=== PATIENT | male | born 1960 ===

== ENCOUNTER 2020-06-13 09:51 | Outpatient (CLI) | payer OTHER, SELFPAY ==
[2020-06-13 10:48] LABS: Basophils Absolute Auto 0.1 K/mm3 (0.0-0.1); Basophils Percent Auto 1.3 % (0.2-1.2); Eosinophils Absolute Auto 0.3 K/mm3 (0-0.3); Eosinophils Percent Auto 3.6 % (0-4.4); Hematocrit 45.2 % (42.0-52.0); Hemoglobin 15.4 g/dL (14.0-18.0); Immature Granulocyte Absolute 0.05 K/mm3 (0.00-0.031); Immature Granulocyte Percent A 0.7 % (0-0.5); Lymphocytes Absolute Auto 1.62 K/mm3 (0.9-3.2); Lymphocytes Percent Auto 22.6 % (18.3-44.2); Mean Corpuscular HGB Conc 34.1 g/dl (32-36); Mean Corpuscular Hemoglobin 30.1 pg (26-34); Mean Corpuscular Volume 88.3 fl (80-100); Monocytes Absolute Auto 0.8 K/mm3 (0.1-0.6); Monocytes Percent Auto 10.6 % (2.6-8.5); Neutrophils Absolute Auto 4.4 K/mm3 (1.3-6.7); Neutrophils Percent Auto 61.2 % (45.5-73.1); Platelet Count Result 190 k/mm3 (150-375); Red Blood Count 5.12 M/mm3 (4.6-6.20); Red Cell Distribution Width 12.3 % (11.5-14.5); White Blood Count 7.2 K/mm3 (4.5-10.0)
[2020-06-13 11:02] LABS: Alanine Aminotransferase 35 U/L (4-50); Alkaline Phosphatase 86 U/L (38-126); Anion Gap 5 mmol/L (8-16); Aspartate Amino Transferase 30 U/L (17-59); Bilirubin,Total 0.6 mg/dL (0.2-1.3); Blood Urea Nitrogen 17 mg/dL (9-20); Calcium 9.2 mg/dL (8.4-10.2); Carbon Dioxide 32 mmol/L (22-30); Chloride 106 mmol/L (98-107); Cholesterol 201 mg/dL (0-200); Estimated Glomerular Filt Rate > 60; Glucose 97 mg/dL (75-110); HDL Direct 34 mg/dL; Magnesium 2.3 mg/dL (1.6-2.3); Potassium 4.5 mmol/L (3.4-5.0); Sodium 143 mmol/L (137-145); Triglycerides 114 mg/dL (<150)
[2020-06-13 11:13] LABS: LDL Cholesterol Direct 149 mg/dL
[2020-06-13 11:31] LABS: Thyroid Stimulating Hormone 0.806 uIU/mL (0.465-4.680)
[2020-06-13 11:44] LABS: Free T4 Free Thyroxine 1.11 ng/mL (0.78-2.19)
== END 2020-06-13 09:52 | disposition home or self-care (01) ==
PROVIDERS: PCP Family Medicine
DX: E78.5 Hyperlipidemia, unspecified (principal); I48.19 Other persistent atrial fibrillation; I10 Essential (primary) hypertension; I49.3 Ventricular premature depolarization
CPT/HCPCS: 36415; 80053; 80061; 83735; 84439; 84443; 85025

== ENCOUNTER 2020-09-06 10:47 | Emergency (ER) | payer OTHER, SELFPAY ==
[2020-09-06] VITALS (11 sets, daily range): BP systolic 103–139; BP diastolic 61–108; PULSE 66–105; RESP 16–20; TEMP 36.8; O2SAT 97–100
--- NOTE | ~2020-09-06 | XR_ITS ---
EXAMINATION: XR chest 2V EXAM DATE: 09/06/2020 11:56 INDICATION: Shortness of breath and dizziness. TECHNIQUE: Frontal and lateral projections of the chest obtained and reviewed. Comparison is made to prior examination from 12/07/2016. FINDINGS: The lungs are clear. There are no pleural effusions. The cardiomediastinal silhouette is within normal limits. There is no pneumothorax suspected. The bones and soft tissues are unremarkab le. IMPRESSION: No acute cardiopulmonary findings. Reviewed, dictated and finalized at location A. D CROP AND LIVESTOCK FARMER
--- NOTE | 2020-09-06 10:58 | ECG_ITS ---
Measurements Intervals [place] Rate: 94 P: CT: 0 QRS: 9 QRSD: 96 T: 30 QT: 330 QTc: 413 Interpretive Statements ATRIAL FIBRILLATION NONSPECIFIC T-WAVE ABNORMALITY- INFERIOR LEADS BASELINE ARTIFACT- I, II, III, AVR, AVL, AVF ABNORMAL ECG Electronically Signed On 09-06-2020 11:43:00 LEGAL ASSISTANT by Santiago Mcwilliams D.O.
[2020-09-06 11:30] LABS: Basophils Absolute Auto 0.1 K/mm3 (0.0-0.1); Basophils Percent Auto 0.7 % (0.2-1.2); Eosinophils Absolute Auto 0.2 K/mm3 (0-0.3); Eosinophils Percent Auto 3.4 % (0-4.4); Hematocrit 46.6 % (42.0-52.0); Hemoglobin 15.7 g/dL (14.0-18.0); Immature Granulocyte Absolute 0.05 K/mm3 (0.00-0.031); Immature Granulocyte Percent A 0.7 % (0-0.5); Lymphocytes Absolute Auto 1.53 K/mm3 (0.9-3.2); Lymphocytes Percent Auto 21.5 % (18.3-44.2); Mean Corpuscular HGB Conc 33.7 g/dl (32-36); Mean Corpuscular Volume 88.9 fl (80-100); Mean Platelet Volume 10.8 fl (7.4-10.4); Monocytes Absolute Auto 0.9 K/mm3 (0.1-0.6); Monocytes Percent Auto 12.7 % (2.6-8.5); Neutrophils Absolute Auto 4.3 K/mm3 (1.3-6.7); Platelet Count Result 163 k/mm3 (150-375); Red Blood Count 5.24 M/mm3 (4.6-6.20); Red Cell Distribution Width 12.4 % (11.5-14.5); White Blood Count 7.1 K/mm3 (4.5-10.0)
[2020-09-06 11:40] LABS: INR 0.9; Prothrombin Time 12.5 Seconds (11.1-14.7)
[2020-09-06 11:41] LABS: Partial Thromboplastin Time 24.5 SECONDS (22.3-36.8)
[2020-09-06 11:42] LABS: Anion Gap 1 mmol/L (8-16); Blood Urea Nitrogen 19 mg/dL (9-20); Carbon Dioxide 34 mmol/L (22-30); Chloride 105 mmol/L (98-107); Estimated CRCL calculation 78 ml/min; Estimated Glomerular Filt Rate > 60; Glucose 87 mg/dL (75-110); Potassium 4.2 mmol/L (3.4-5.0); Sodium 140 mmol/L (137-145)
[2020-09-06 11:53] LABS: Troponin I < 0.012 ng/mL (0.000-0.034)
[2020-09-06] MEDS: SODIUM CHLORIDE 0.9% IV 500 ML 999 ML IV CONT (12:27)
[2020-09-06] MEDS: METOPROLOL TARTRATE INJ 5 MG/5 ML VIAL IV PUSH (12:27)
--- NOTE | 2020-09-06 12:59 | ED.ARRPALP ---
HPI - Arrhythmia/Palpitations General Chief Complaint: Arrhythmia/Palpitations Stated Complaint: afib, sob, dizzy, jaw pain Time Seen by Provider: 09/06/20 11:41 Source: patient Mode of arrival: ambulatory Limitations: no limitations History of Present Illness HPI narrative: This patient is a 60 year old male with history of paroxysmal atrial fibrillation who presents for evaluation of atrial fibrillation. He states over the past 2 days he has had intermittent episodes of dizziness. He noticed it when he was bending over. He also reports he had episodes of jaw pain. HE denies chest pain and he does not feel his heart racing. He noticed that he was in atrial fibrillation when he wore his daughter's apple watch. He spoke with the utilities estimator and drafter online media director for Dr. Chatman, and he was instructed to come to ER. He recently had a negative stress test. He stopped taking his eliquis 3 weeks ago since he has not had any events since his episode in June. He takes metoprolol 50 mg BID, and he has taken his morning dose today. He feels fine currently. Related Data Allergies Allergy/AdvReac Type Severity Reaction Status Date / Time No Known Allergies Allergy Mild Verified 09/06/20 10:58 Review of Systems Review of Systems: All systems reviewed & are unremarkable except as noted in HPI and below Constitutional: Constitutional: Denies chills and Denies fever(s) Cardiovascular: Cardiovascular: Denies chest pain Gastrointestinal: Gastrointestinal: Denies abdominal pain, Denies nausea and Denies vomiting Neurologic: Reports dizziness and Denies headache(s) [facility] Past Medical History Medical History (Updated 09/06/20 @ 17:49 by Rosalee Chaudhary MD) Paroxysmal atrial fibrillation Family History Family History (Updated 05/10/14 @ 07:13 by DOCTOR UNKNOWN) Father Family history of coronary artery disease Mother Family history of coronary artery disease Social History Social History Smoking status: Never smoker Alcohol intake: never Exam Const: General: no acute distress and alert Orientation/consciousness: patient oriented x3 Eyes: EOM: EOMs intact bilaterally Chest: Chest palpation & inspection: normal inspection of the chest Resp: Effort & Inspection: normal respiratory effort and no retractions Auscultation: clear to auscultation bilaterally Cardio: Rate: regular rate Rhythm: abnormal rhythm irregularly irregular Heart sounds: no murmurs GI: GI Palp: Yes Soft to palpation, No Tenderness to palpation present (GI) and No Guarding due to palpation present (GI) Auscultation: normal bowel sounds Skin: General skin exam: normal color Rashes: no rashes Neuro: General: patient oriented x3 and moves all extremities Extrem: General: no pedal edema Psych: Mental Status: mental status grossly normal Affect: normal affect Course Reevaluation(s) Reevaluation #1: Patient is able to walk around. HE denies dizziness or jaw pain. He understands we are awaiting call back from utilities estimator and drafter. Date: 09/06/20 Time: 14:00 Reevaluation #2: Patient has no complaints. I have discussed options of discharge home vs transfer for cardioversion. PAtient states he is comfortable with discharge home and follow up with his utilities estimator and drafter. I have discussed that the utilities estimator and drafter recommended increasing his metoprolol to 75 mg BID and He will need to restart his eliquis. Date: 09/06/20 Time: 15:33 Consultations Consultation #1: I discussed labs,vitals. He understands patient is in afib . HE agrees patient can be discharged if he is comfortable or if he can be transferred for cardioversion on Wednesday Date: 09/06/20 Time: 15:30 Vital Signs Vital signs: Vital Signs Temperature 98.3 F 09/06/20 10:55 Pulse Rate 105 H 09/06/20 10:55 Respiratory Rate 16 09/06/20 10:55 Blood Pressure 139/108 H 09/06/20 10:55 Pulse Oximetry 99 09/06/20 10:55 Temperature 98.3 F 09/06/20 10:55 Pulse Rate 80
[2020-09-06 13:19] LABS: D Dimer 0.31 ug/mL (<0.48)
[2020-09-06] MEDS: dilTIAZem HCl INJ 25 MG/5 ML VIAL 10 MG IV PUSH (13:41)
[2020-09-06 15:13] LABS: Troponin I < 0.012 ng/mL (0.000-0.034)
== END 2020-09-06 15:50 | disposition home or self-care (01) ==
PROVIDERS: Emergency Provider General Practice; PCP Family Medicine
DX: I48.0 Paroxysmal atrial fibrillation (principal); R94.31 Abnormal electrocardiogram [ECG] [EKG]
CPT/HCPCS: 36415; 71046; 80048; 84484; 85025; 85380; 85610; 85730; 93005; 96361; 96374; 96375; 99284; J7040

== ENCOUNTER 2020-12-23 09:57 | Outpatient (CLI) | payer OTHER, SELFPAY ==
[2020-12-23 10:41] LABS: Alanine Aminotransferase 36 U/L (4-50); Alkaline Phosphatase 83 U/L (38-126); Aspartate Amino Transferase 30 U/L (17-59); Bilirubin,Total 0.6 mg/dL (0.2-1.3); Cholesterol 131 mg/dL (0-200); HDL Direct 37 mg/dL; Triglycerides 70 mg/dL (<150)
[2020-12-23 10:52] LABS: LDL Cholesterol Direct 79 mg/dL
[2020-12-24 11:54] LABS: Anion Gap 4 mmol/L (8-16); Blood Urea Nitrogen 16 mg/dL (9-20); Calcium 8.9 mg/dL (8.4-10.2); Carbon Dioxide 30 mmol/L (22-30); Chloride 109 mmol/L (98-107); Estimated Glomerular Filt Rate > 60; Glucose 94 mg/dL (75-110); Potassium 4.1 mmol/L (3.4-5.0); Sodium 143 mmol/L (137-145)
[2020-12-24 12:22] LABS: Prostate Specific Antigen 2.1 ng/mL (< OR = 4.0)
== END 2020-12-23 09:58 | disposition home or self-care (01) ==
PROVIDERS: PCP Family Medicine; Referring Provider Internal Medicine Cardiovascular Disease; Visit Provider Physician Assistant
DX: Z12.5 Encounter for screening for malignant neoplasm of prostate (principal); Z13.1 Encounter for screening for diabetes mellitus
CPT/HCPCS: 36415; 80053; 80061; 80076; 84153; G0103

== ENCOUNTER 2021-07-31 09:03 | Outpatient (CLI) | payer OTHER, SELFPAY ==
[2021-07-31 09:39] LABS: Alanine Aminotransferase 81 U/L (4-50); Albumin Level 4.1 g/dL (3.5-5.1); Alkaline Phosphatase 100 U/L (38-126); Aspartate Amino Transferase 42 U/L (17-59); Bilirubin,Total 0.6 mg/dL (0.2-1.3); Cholesterol 168 mg/dL (0-200); HDL Direct 34 mg/dL; Triglycerides 119 mg/dL (<150)
[2021-07-31 09:50] LABS: LDL Cholesterol Direct 100 mg/dL
== END 2021-07-31 09:04 | disposition home or self-care (01) ==
LOC: ANHLAB 09:05
PROVIDERS: PCP Family Medicine; Visit Provider Internal Medicine Cardiovascular Disease
DX: E78.5 Hyperlipidemia, unspecified (principal); I10 Essential (primary) hypertension
CPT/HCPCS: 36415; 80061; 80076

== ENCOUNTER 2021-08-08 10:21 | Outpatient (CLI) | payer OTHER, SELFPAY ==
[2021-08-08 11:25] LABS: Alanine Aminotransferase 59 U/L (4-50); Albumin Level 3.9 g/dL (3.5-5.1); Alkaline Phosphatase 104 U/L (38-126); Aspartate Amino Transferase 33 U/L (17-59); Bilirubin,Total 0.6 mg/dL (0.2-1.3)
== END 2021-08-08 10:22 | disposition home or self-care (01) ==
LOC: ANHLAB 10:23
PROVIDERS: PCP Family Medicine; Visit Provider Internal Medicine Cardiovascular Disease
DX: E78.5 Hyperlipidemia, unspecified (principal); I10 Essential (primary) hypertension
CPT/HCPCS: 36415; 80076

== ENCOUNTER 2021-12-17 09:47 | Outpatient (CLI) | payer OTHER, SELFPAY ==
[2021-12-17 10:58] LABS: Basophils Absolute Auto 0.1 K/mm3 (0.0-0.1); Basophils Percent Auto 0.8 % (0.2-1.2); Eosinophils Absolute Auto 0.2 K/mm3 (0-0.3); Eosinophils Percent Auto 2.7 % (0-4.4); Hematocrit 49.8 % (42.0-52.0); Hemoglobin 16.6 g/dL (14.0-18.0); Immature Granulocyte Absolute 0.05 K/mm3 (0.00-0.031); Immature Granulocyte Percent A 0.7 % (0-0.5); Lymphocytes Absolute Auto 1.19 K/mm3 (0.9-3.2); Lymphocytes Percent Auto 16.8 % (18.3-44.2); Mean Corpuscular HGB Conc 33.3 g/dl (32-36); Mean Corpuscular Hemoglobin 30.6 pg (26-34); Mean Corpuscular Volume 91.9 fl (80-100); Mean Platelet Volume 10.8 fl (7.4-10.4); Monocytes Absolute Auto 0.8 K/mm3 (0.1-0.6); Monocytes Percent Auto 11.8 % (2.6-8.5); Neutrophils Absolute Auto 4.8 K/mm3 (1.3-6.7); Neutrophils Percent Auto 67.2 % (45.5-73.1); Platelet Count Result 191 k/mm3 (150-375); Red Blood Count 5.42 M/mm3 (4.6-6.20); Red Cell Distribution Width 12.7 % (11.5-14.5); White Blood Count 7.1 K/mm3 (4.5-10.0)
[2021-12-17 11:00] LABS: Add Urine Microscopic? NO; Appearance Urine Clear (Clear); Bilirubin Urine Negative (Negative); Blood Urine Negative (Negative); Color Urine Yellow (Yellow); Glucose Urine UA Negative (Negative); Ketones Urine Negative (Negative); Leukocyte Esterase Ur Negative LEU/UL (NEGATIVE); Nitrate Urine Negative (Negative); Protein Urine Negative (Negative); Specific Grav Ur 1.018 (1.001-1.035); Urobilinogen Urine Negative mg/dL (<2.0)
[2021-12-17 11:10] LABS: Alanine Aminotransferase 48 U/L (4-50); Albumin Level 4.3 g/dL (3.5-5.1); Alkaline Phosphatase 105 U/L (38-126); Anion Gap 5 mmol/L (8-16); Aspartate Amino Transferase 37 U/L (17-59); Bilirubin,Total 0.8 mg/dL (0.2-1.3); Blood Urea Nitrogen 16 mg/dL (9-20); CRP < 0.5 mg/dL (<1.0); Carbon Dioxide 31 mmol/L (22-30); Chloride 103 mmol/L (98-107); Cholesterol 168 mg/dL (0-200); Estimated Glomerular Filt Rate > 60; Glucose 96 mg/dL (65-110); HDL Direct 39 mg/dL; Potassium 4.1 mmol/L (3.4-5.0); Sodium 139 mmol/L (137-145); Triglycerides 86 mg/dL (<150)
[2021-12-17 11:10] LABS: Rheumatoid Factor < 8.6 IU/ML (<12)
[2021-12-17 11:19] LABS: LDL Cholesterol Direct 92 mg/dL
[2021-12-17 11:34] LABS: Erythrocyte Sedimentation Rate 1 mm/hr (0-20)
[2021-12-17 11:39] LABS: Hepatitis B Surface Antigen Negative (Negative)
[2021-12-17 11:45] LABS: HAV RESULT Negative (Negative); Hepatitis B Core IgM Result Negative (Negative)
[2021-12-17 11:48] LABS: HIV 1/2 Ab P24 Ag Result Negative (Negative)
[2021-12-17 11:56] LABS: Hepatitis C Virus Antibody Negative (Negative)
[2021-12-20 04:46] LABS: Albumin 4.2 g/dL (3.8-4.8); Alpha 1 Globulin 0.3 g/dL (0.2-0.3); Alpha 2 Globulin 0.7 g/dL (0.5-0.9); Beta 1 Globulin 0.5 g/dL (0.4-0.6); Gamma Globulin 0.9 g/dL (0.8-1.7); Protein, Total 6.9 g/dL (6.1-8.1)
[2021-12-22 19:52] LABS: Creatinine, Random Urine 138 mg/dL (20-320); Total Protein/Creatinine Ratio 65 mg/g creat (22-128)
[2021-12-24 11:44] LABS: Cryoglobulin, QL Negative (Negative)
== END 2021-12-17 09:48 | disposition home or self-care (01) ==
LOC: ANHLAB 09:52
PROVIDERS: PCP Family Medicine; Visit Provider Internal Medicine Cardiovascular Disease
DX: I48.0 Paroxysmal atrial fibrillation (principal); I10 Essential (primary) hypertension; E78.2 Mixed hyperlipidemia
CPT/HCPCS: 36415; 80053; 80061; 80074; 81003; 82248; 82570; 82595; 84155; 84156; 84165; 84166; 85025; 85652; 86038; 86140; 86430; 86703; G0432

== ENCOUNTER 2022-05-07 08:20 | Emergency (ER) | payer OTHER, SELFPAY ==
--- NOTE | ~2022-05-07 | XR_ITS ---
EXAMINATION: XR hand RT min 3V INDICATION: Right first finger pain TECHNIQUE: Three views of the right hand are obtained. COMPARISON: None available FINDINGS: Bone alignment is normal. There is no acute fracture. 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 The soft tissues ar e unremarkable. IMPRESSION: 1. No acute osseous abnormality. Reviewed, dictated and finalized at location B.
[2022-05-07 08:31] VITALS: BP 149/97; PULSE 64; RESP 18; TEMP 36.1; O2SAT 99
--- NOTE | 2022-05-07 09:12 | WC.ED.TRAUMA ---
HPI - Trauma General Chief Complaint: Extremity Injury, Upper Stated Complaint: R HAND PAIN S/P FALL Time Seen by Provider: 05/07/22 08:36 Source: patient and family Limitations: no limitations History of Present Illness HPI narrative: 62 years old white female presents with pain at the right thumb. Patient report a fall while going down [address], landed on the right hand with bruises of the right thumb. 4 days ago. Patient went see his family physician yesterday and was discharged on doxycycline. Patient complaining of throbbing pain at the tip of the right thumb. He denies other injuries. Related Data Allergies Allergy/AdvReac Type Severity Reaction Status Date / Time No Known Allergies Allergy Mild Verified 05/07/22 08:21 Review of Systems Review of Systems: All systems reviewed & are unremarkable except as noted in HPI and below PMFSH Past Medical History Medical History Paroxysmal atrial fibrillation Family History Family History Father Family history of coronary artery disease Mother Family history of coronary artery disease Social History Social History Smoking status: Never smoker Alcohol intake: never Exam Narrative: General appearance: Well-developed, well-nourished Skin: Normal color Head: Normocephalic, nontraumatic Neck: Supple, nontender Chest and respiratory: Airway patent, no respiratory distress, no accessory muscle use Heart: Regular rate/rhythm Vascular: Normal peripheral pulses, normal capillary refill. Musculoskeletal: Normal range of motion, nontender back right hand shoulder bruises at the tip of the right thumb and subangular hematoma Neurologic: Alert and oriented ?3, CABLE SUPERVISOR is normal as tested, no gross motor deficit Course Course Emergency Course: Contusion, subungual hematoma right thumb is my concern. Vital Signs Vital signs: Vital Signs Temperature 36.1 C L 05/07/22 08:31 Pulse Rate 64 05/07/22 08:31 Respiratory Rate 18 05/07/22 08:31 Blood Pressure 149/97 H 05/07/22 08:31 Pulse Oximetry 99 05/07/22 08:31 Oxygen Delivery Room Air 05/07/22 08:31 Temperature 36.1 C L 05/07/22 08:31 Pulse Rate 64 05/07/22 08:31 Respiratory Rate 18 05/07/22 08:31 Blood Pressure 149/97 H 05/07/22 08:31 Pulse Oximetry 99 05/07/22 08:31 Oxygen Delivery Room Air 05/07/22 08:31 Procedures Nail Trephination Nail Trephination #1: Nail Trephination Date: 05/07/22 Nail Trephination Time: 10:34 Time out: Yes (10 minutes) Location (finger): right and thumb Sterile prep: chlorhexidine Method of drainage: nail cautery Procedure successful: Yes Patient tolerated procedure: well Complications: bleeding and pain MDM - Trauma Differential Diagnosis Differential diagnosis: Likely fracture of pelvis (Hand fracture, subungual hematoma, contusion) Imaging Data Radiologist's impression: Impressions Hand X-Ray 05/07/22 08:58 IMPRESSION: 1. No acute osseous abnormality. Critical Care Time Critical Care Time Critical Care Time: No Discharge Plan Discharge Clinical Impression: Subungual hematoma of finger of right hand Patient Disposition: Home, Self-Care Condition: Improved Instructions: Antibiotic Form, Subungual Hematoma (ED), Contusion in Adults (ED) Additional Instructions: Return if symptoms are worsening , call your family physician for appointment, take Tylenol as as needed for aches and pain, continue home medicati
[2022-05-07 10:49] VITALS: BP 177/94; PULSE 58; RESP 18; O2SAT 98
== END 2022-05-07 10:52 | disposition home or self-care (01) ==
PROVIDERS: Emergency Provider Emergency Medicine; PCP Family Medicine
DX: S60.111A Contusion of right thumb with damage to nail, initial encounter (principal); I48.0 Paroxysmal atrial fibrillation; Z79.01 Long term (current) use of anticoagulants; W10.2XXA Fall (on)(from) incline, initial encounter
CPT/HCPCS: 11740; 73130; 99283

== ENCOUNTER 2022-08-07 08:55 | Outpatient (CLI) | payer OTHER, SELFPAY ==
[2022-08-07 09:22] LABS: Basophils Absolute Auto 0.1 K/mm3 (0.0-0.1); Basophils Percent Auto 1.1 % (0.2-1.2); Eosinophils Absolute Auto 0.5 K/mm3 (0-0.3); Eosinophils Percent Auto 7.6 % (0-4.4); Hematocrit 43.4 % (42.0-52.0); Hemoglobin 14.6 g/dL (14.0-18.0); Immature Granulocyte Absolute 0.04 K/mm3 (0.00-0.031); Immature Granulocyte Percent A 0.6 % (0-0.5); Lymphocytes Percent Auto 22.7 % (18.3-44.2); Mean Corpuscular HGB Conc 33.6 g/dl (32-36); Mean Corpuscular Hemoglobin 30.2 pg (26-34); Mean Corpuscular Volume 89.7 fl (80-100); Mean Platelet Volume 10.9 fl (7.4-10.4); Monocytes Absolute Auto 0.8 K/mm3 (0.1-0.6); Monocytes Percent Auto 12.9 % (2.6-8.5); Neutrophils Absolute Auto 3.4 K/mm3 (1.3-6.7); Neutrophils Percent Auto 55.1 % (45.5-73.1); Platelet Count Result 157 k/mm3 (150-375); Red Blood Count 4.84 M/mm3 (4.6-6.20); Red Cell Distribution Width 12.3 % (11.5-14.5); White Blood Count 6.2 K/mm3 (4.5-10.0)
[2022-08-07 09:39] LABS: Alanine Aminotransferase 31 U/L (6-50); Alkaline Phosphatase 98 U/L (38-126); Anion Gap 7 mmol/L (8-16); Aspartate Amino Transferase 30 U/L (17-59); Bilirubin,Total 0.4 mg/dL (0.2-1.3); Blood Urea Nitrogen 13 mg/dL (9-20); Calcium 8.5 mg/dL (8.4-10.2); Carbon Dioxide 30 mmol/L (22-30); Chloride 106 mmol/L (98-107); Cholesterol 137 mg/dL (0-200); Estimated Glomerular Filt Rate > 60; Glucose 95 mg/dL (65-110); HDL Direct 39 mg/dL; Magnesium 2.1 mg/dL (1.6-2.3); Potassium 3.9 mmol/L (3.4-5.0); Sodium 143 mmol/L (137-145); Triglycerides 73 mg/dL (<150)
[2022-08-07 09:49] LABS: LDL Cholesterol Direct 75 mg/dL
== END 2022-08-07 08:56 | disposition home or self-care (01) ==
LOC: ANHLAB 08:59
PROVIDERS: PCP Family Medicine; Visit Provider Internal Medicine Cardiovascular Disease
DX: R04.0 Epistaxis (principal); I48.0 Paroxysmal atrial fibrillation; I35.1 Nonrheumatic aortic (valve) insufficiency; E78.2 Mixed hyperlipidemia
CPT/HCPCS: 36415; 80053; 80061; 83735; 85025

== ENCOUNTER 2023-04-08 10:03 | Outpatient (CLI) | payer OTHER, SELFPAY ==
[2023-04-08 11:14] LABS: Alanine Aminotransferase 32 U/L (6-50); Albumin Level 4.2 g/dL (3.5-5.1); Alkaline Phosphatase 95 U/L (38-126); Aspartate Amino Transferase 29 U/L (17-59); Bilirubin,Total 0.6 mg/dL (0.2-1.3); Cholesterol 148 mg/dL (0-200); HDL Direct 40 mg/dL; Triglycerides 74 mg/dL (<150)
[2023-04-08 11:38] LABS: LDL Cholesterol Direct 82 mg/dL
== END 2023-04-08 10:04 | disposition home or self-care (01) ==
PROVIDERS: PCP Family Medicine Sports Medicine; Visit Provider Internal Medicine Cardiovascular Disease
DX: E78.2 Mixed hyperlipidemia (principal)
CPT/HCPCS: 36415; 80061; 80076

== ENCOUNTER 2024-11-15 10:56 | Outpatient (CLI) | payer MEDICARE, SELFPAY ==
[2024-11-15 11:52] LABS: Alanine Aminotransferase 43 U/L (6-50); Albumin Level 4.1 g/dL (3.5-5.1); Alkaline Phosphatase 93 U/L (38-126); Aspartate Amino Transferase 30 U/L (17-59); Bilirubin,Total 0.8 mg/dL (0.2-1.3); Cholesterol 154 mg/dL (0-200); HDL Direct 39 mg/dL; Triglycerides 82 mg/dL (<150)
[2024-11-15 12:03] LABS: LDL Cholesterol Direct 83 mg/dL
--- OUTSIDE RECORDS SUMMARY | 2024-11-15 12:43 | XMS_ITS | Clinical Summary ---
Author Organization [facility] Address [address] [place] [address] Care Team Providers Care Imaging Manager Name Role Phone Reji Taylor MD Unavailable [phone] Delroy Best MD Unavailable [phone] Marta Taylor MD Primary Care Provider Maria Fernanda Oakes MD Unavailable [phone] Nallely Lyons MD PhD Unavailable Allergies No known active allergies Medications odbjetjj-lkx-LU- lycopen-lutein 0.4-2-250 mg-mg-mcg tablet Rx: Multi For Him - Tablet Active fluticasone propionate (FLONASE) 50 mcg/actuation nasal spray Administer 1 spray into each nostril daily Active DEXAMETHASONE OPHT Administer 1 drop into both eyes 4 (four) times a day Preservative-free dexamethasone 0.01% (from [facility] in [place], prescibed over the phone on 02/02/22) Active varenicline (Tyrvaya) 0.03 mg/spray spray, metered, non-aerosol Administer 0.03 mg into each nostril 2 (two) times a day 25.2 mL 3 12/17/19 24 Active levalbuterol (XOPENEX HFA) 45 mcg/actuation inhalerIndicatio ns:Mild persistent asthma without complication,Mod erate persistent asthma without complication,Mil d intermittent asthma in adult without complication Inhale 2 puffs every 6 (six) hours as needed for wheezing 1 each 3 12/21/19 24 Active sodium chloride (John 128) 5 % ophthalmic solutionIndicati ons:Corneal Edema Administer 1 drop into both eyes 2 (two) times a day as needed (irritation) 15 mL 3 03/10/20 24 Active Additional Information Patient taking differently:1 drop each eyeAs needed, irritation, Indications: Corneal Edema, Reported on 05/26/2024 flecainide (TAMBOCOR) 150 mg tabletIndication s:Paroxysmal atrial fibrillation (HCC) TAKE 1 TABLET(150 MG) BY MOUTH TWICE DAILY 60 tablet 3 09/11/20 24 Active budesonide-formo teroL (Symbicort) 160-4.5 mcg/actuation inhaler Inhale 2 puffs 2 (two) times a day Rinse mouth with water after use. Do not swallow. 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 Assessment & Plan (05/24/2023 3:37 PM CDT): - exam today with diffuse injection, punctate areas of lissamine uptake OS > OD - continue doxycycline 100 qD, PF-dex BID, PFATs PRN OU - next available cornea evaluation given waxing/waning course/desire for second opinion on possible therapies Assessment & Plan (12/18/2022 2:43 PM CDT): On doxy 100 qdaily and PF dex BID OU, doing very well Exam today with resolved injection, few punctate areas of lissamine uptake IOP today 15/16 Decrease PF dex to qdaily OU Continue doxy 100 mg daily Continue pfat Assessment & Plan (09/24/2022 4:38 PM SEISMOGRAPH RECORDER): Improvement on exam today, just patchy lissamine green stain uptake, and patient is symptomatically improved as well Will decrease to doxy 100 mg from BID to daily and plan to continue as maintenance dose Will decrease preservative free dex to BID both eyes (OU), intraocular pressure (IOP) excellent today Continue Preservative free artificial tears PRN both eyes (OU) RTC 2 months Assessment & Plan (07/15/2022 2:05 PM CDT): Here for f/u of suspected SLK both eyes (initial eval 01/2022 with lissamine positive staining) Initially tried on PF QID -> switched preserv free Dex and added PO azithro -> trialed LTX additionally without improvement -> continued on PF Dex TID OU Reports trying various lubricants without significant relief Today: VA good, IOP wnl and nerve healthy appearing Symptoms overall improved from 01/2022 but still very bothersome - notes burning and FBS most prominent Exam still with superior bulbar conj injection and lid inflammation, as well as mild eyelid scurf May have additionally component of ocular rosacea and blepharitis Plan: -- Start Doxycycline 100mg BID -- Continue PF Dex TID OU, reminder of technique for superior bulbar conj application -- Trial tea tree oil lid scrubs gently -- Reminder to avoid tissue, rubbing eyes, wind/fan on eyes; use protective eyewear and hat for skin protection -- PRN PF lubrication, if trying ointment make sure lanolin free -- RTC 6-8 weeks for anterior exam, sooner with new concerns Assessment & Plan (05/13/2022 10:10 AM CDT): Here for f/u of suspected SLK both eyes. Switched PF to pf dex and added PO azithro previously given superior conj and lid margin inflammation Symptoms worsened on LTX rafi, and improved after discontinuing. VA stable. Plan: -- Decrease pf dex to TID OU, can punctal occlude as patient is concerned about amount of steroids (also uses nasal spray and steroid inhaler). -- RTC 6-8 weeks Assessment & Plan (03/30/2022 4:51 PM CDT): Here for f/u of suspected SLK both eyes. Switched PF to pf dex and added PO azithro after last visit given superior conj and lid margin inflammation -- today with mildly improved sxs; sxs are worse right when he wakes up in the morning Subjective VA stable; patient without glasses today but notes no change in his vision that he can tell Plan: -- Continue pf dex QID OU -- Will add lotemax rafi qhs OU -- RTC 6 weeks, sooner PRN Assessment & Plan (02/02/2022 11:25 AM CDT): 2 week f/u for suspected SLK both eyes. -- today with persistent superior conj inflammation. Also with significant lid margin inflammation/telangiectasia -- pt noted minimal improvement with superior application of pred acetate -- discussed options including changing to preservative free dexamethasone and/or a burst of azithromycin 1g weekly x3 doses (given lid margin inflammation) -- pt would like to trial these changes Plan: -- change pred to PF dex to superior limbux 4x a day -- add azithromycin 1g weekly x3 weeks -- RTC 6-8 weeks, sooner prn Assessment & Plan (01/20/2022 6:55 AM CDT): Onset of symptoms 3 months ago after acute episode of bilateral scleritis/conjunctivitis (was in [place], +tick bite). Pt was treated with PF drops, no oral NSAIDs or steroids. Rash on bilateral lower leg around same time as ocular symptoms, which has resolved. Tapered off steroids drops. Underwent workup for possible inflammatory/vasculitic etiology: (under media) -BMP, CMP wnl -NANCY negative -HIV neg -RF normal -Hepatitis panel negative -SPEP normal Today with findings of bilateral upper tarsal conjunctival and superior scleral conjunctival inflammation with lissamine staining, consistent with SLK. Unclear if this is triggered by initial episode of ?scleritis. Recommend restarting PF QID OU, but with more direct application to superior sclera. Drop application instructions reviewed with patient. If persistent ocular irritation, there may be component of sensitivity to preservatives and can try preservative-free steroids drops. RTC 2-3 weeks, before his trip out of town. Mixed hyperlipidemia 08/06/2021 Assessment & Plan (04/12/2024 6:01 PM CDT): Chronic. Tolerates cholesterol medication. Check cholesterol level and just as needed. Target minimum an LDL goal less than 100 with optimal less than 70 Paroxysmal atrial fibrillation 07/10/2020 Assessment & Plan (04/12/2024 6:01 PM CDT): Chronic. He has remained in sinus rhythm with flecainide. Patient's racing mechanic feels his risk for stroke is relatively low so has allowed him to stop the Eliquis. Given there is lack of evidence suggesting whether aspirin is beneficial at preventing stroke this has been deferred. Patient is afebrile she is able to monitor his heart rhythm and he feels anything he has been sending it to his racing mechanic to review Essential hypertension 03/07/2019 Assessment & Plan (04/12/2024 6:00 PM CDT): Chronic. HTN controlled. Cont prescription Rx as indicated in HPI under HTN diagnosis. Low sodium diet (DASH or Mediterranean), exercise, wt loss (if over weight) discussed Nonrheumatic aortic (valve) insufficiency 2017 Overview (03/06/2019): Trace by echo done in September 2017 Assessment & Plan (04/12/2024 6:00 PM CDT): Mild. Asymptomatic. Monitor for symptoms PAC (premature atrial contraction) 10/05/2017 Palpitations 10/05/2017 Overview (03/06/2019): Left ventricle systolic function is normal by echo done in September 2019 his chest test is negative for ischemia in September 2027. PVCs (premature ventricular contractions) 2017 Overview (03/06/2019): Holter monitor done on 08/16/2017 showed rare APCs with a 6 beat run of PSVT at a heart rate of 185 bpm. There are 4349 PVCs without any ventricular tachycardia. Ventricular bigeminy and trigeminy noted. Patient did not report any symptoms at the time.. Allergic rhinitis due to pollen 12/16/2016 Allergic rhinitis due to mold 12/16/2016 Mild persistent asthma 12/16/2016 Assessment & Plan (04/12/2024 6:01 PM CDT): Chronic. Doing well. Continue current prescription inhalers Resolved Problems Problem Noted Date Diagnosed Date Resolved Date BMI 25.0-25.9,adult 04/12/2024 04/12/20 24 Persistent atrial fibrillation 06/12/2020 07/10/2020 Dyslipidemia 10/18/2019 08/06/2021 Abnormal liver function tests 01/03/2018 08/14/2022 Overview (03/06/2019): As per patient there were normalized on the follow-up labs in your office Chest pain in adult 10/05/2017 08/14/20 22 Asthma 04/12/2024 Encounters Date Type Department Care Team Description 10/12/2024 Telephone [facility] Medical [facility] Cardiology [address] [facility] [address] [address] Delroy Best MD from Last 3 Months Immunizations Immunization Administration Dates Next Due Influenza, Quadrivalent, Fadumo l Culture-based MDCK, Preservative Free, Antibiotic Free, Intramuscular 07/18/2021 Influenza, Unspecified 04/12/2024(Deferred: Brandee ent Refused) Moderna SARS-CoV-2 Monovalen t Vaccination (12+ YRS) 12/16/2020 Tdap 09/26/2014 ZOSTER Recombinant 11/03/2021,08/01/2021 Medical History Medical History Date Comments Irregular heart beat Hyperlipidemia Hypertension Atrial fibrillation (HCC) 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 Family History Medical History Relation Name Comments Diabetes Father Family history of diabetes mellitus - (Added by TW Conv) Heart disease Mother Family history of cardiac disorder - (Added by TW Conv) Colon cancer Neg Hx Relation Name Status Comments Father Alive Mother Social History Tobacco Use Types Packs/Day Years Used Date Smoking Tobacco: Never Passive Smoke Exposure: Never Smokeless Tobacco: Never Tobacco Cessation:Counseling Given: Not Answered Alcohol Use Standard Drinks/Week Comments Yes 0 [...] points, staff should administer the PHQ-9) 0 04/12/2024 Sex and Gender Information Value Date Recorded Sex Assigned at Not on file Legal Sex Male 3:18 AM SEISMOGRAPH RECORDER Gender Identity Not on file Sexual Orientation Not on file Obstetrics History Last Filed Vital Signs Vital Sign Reading Time Taken Comments Blood Pressure 134/86 05/19/2024 8:12 AM CDT Pulse 68 05/19/2024 8:12 AM CDT Temperature 36.9 C (98.4 F) 04/12/2024 1:44 PM CDT Respiratory Rate 18 05/19/2024 8:12 AM CDT Oxygen Saturation 98% 05/19/2024 8:12 AM CDT Inhaled Oxygen Concentration - - Weight 91.1 kg (200 lb 14.4 oz) 05/19/2024 8:12 AM CDT Height 185.4 cm (6' 1 ) 05/19/2024 8:12 AM CDT Body Mass Index 26.51 05/19/2024 8:12 AM CDT Plan of Treatment Health Maintenance Due Date Last Done Comments Hepatitis B Screening 1977 Pneumococcal vaccine 65+ (1 of 2 - PCV) 1978 Colon Cancer Screening-Colonoscopy 08/08/2022 08/08/2012 Covid-19 Vaccine (2023-2 5 season) 2024 06/10/2022, 02/02/2022, 07/18/2021, Additional history exists Influenza Vaccine (#1) 2024 07/18/2021 DTaP/Tdap/Td Vaccine (2 - Td or Tdap) 09/26/2024 09/26/2014 Depression Screening 04/12/2025 04/12/2024, 01/03/2024, 08/14/2022 Fall Risk Assessment 04/12/2025 04/12/2024 Well Visit 65+ 04/12/2025 04/12/2024 Prostate Cancer Screening-PSA 05/12/2026 05/12/2024 Colon Cancer Screening-CT Colonography Discontinued 08/08/2012 Colon Cancer Screening-DNA Stool Discontinued 08/08/20 12 Colon Cancer Screening-FIT Discontinued 08/08/2012 Colon Cancer Screening-Sigmoidoscopy Discontinued 08/08/2012 Zoster Vaccine Completed 11/03/2021, 08/01/2021 Hepatitis C Screening Completed 12/17/2021 Procedures Procedure Name Priority Date/Time Associated Diagnosis Comments PSA SCREEN Routine 05/12/2024 11:00 AM CDT Screening for prostate cancer Routine general medical examination at a [facility] care facility HM COLONOSCOPY Routine 08/08/2012 3:20 PM SEISMOGRAPH RECORDER from Last 3 Months or Most Recently Relevant to Health Maintenance Results * PSA screen (05/12/2024 11:00 AM CDT) PSA-Total 3.02 <=5.40 ng/mL Comment: Interpretive Data AGE SEX REFERENCE INTERVAL 0 minutes-150 years Female None 0 minutes-49 years Male None 50-59 years Male 0-3.90 60-69 years Male 0-5.40 70-79 years Male 0-6.20 80-150 years Male 0-6.20 The Paulette PSA Total assay procedure was used. Results from different manufacturers or methods may not be comparable. Serial testing should be performed using the same method. Current interpretive data last revised 22. Blood 05/12/2024 11:0 0 AM CDT 05/12/2024 3:43 PM CDT us Marta Taylor MD LAB BLOOD ORDERABLES F inal Result JIE [id number] [place] [address] * HM COLONOSCOPY (08/08/2012 3:20 PM SEISMOGRAPH RECORDER) us Historical Provider HEALTH MAINTENANCE Final Result from Last 3 Months or Most Recently Relevant to Health Maintenance Insurance T MEDICARE T MEDICARE Care Teams Imaging Manager Relationship Specialty Start Date End Date Marta Taylor MD [address] [place] [address] PCP - General Family Practice 08/14/22 Reji Taylor MD 12/15/18 Delroy Best MD [address] [address] Explosives Engineer Cardiology 11/20/20 Champ, Maria Fernanda Clifford MD [address] [place] [address] [address] [place] [address] Referring Physician Allergy and Immunology 04/12/24 Nallely Lyons MD PhD [address] [place] [address] Consulting Physician Ophthalmology 04/12/24
--- OUTSIDE RECORDS SUMMARY | 2024-11-15 12:43 | XMS_ITS | Encounter Summary ---
Author Organization [facility] Address [address] [place] [address] Phone Care Team Providers Care Event Sales Manager Name Role Phone Reji Taylor MD Unavailable [phone] Hemal Huffman MD Primary Care Provider [phone] Delroy Best MD Unavailable [phone] Reason for Referral * (Routine) - Closed Specialty Diagnoses / Procedures Referred By Juan C echavarria Referred To Contact Diagnoses Mild intermittent asthma in adult without complication Procedures Pulmonary Function Test -[facility] Adult PFT Lab- [facility]; Standard; Spirometry, Spirometry w/bronchodilator, DLCO and Lung Volumes Sebastian Saenz Jr., MD Phone: tel: fax: Referral ID Status Reason Start Date Expiration Date Visits Re quested Visits Authorized [id number] Closed 04/26/2020 05/26/2021 1 1 Reason for Visit * (Routine) - Closed Specialty Diagnoses / Procedures Referred By Juan C echavarria Referred To Contact Diagnoses Mild intermittent asthma in adult without complication Procedures Pulmonary Function Test -[facility] Adult PFT Lab- [facility]; Standard; Spirometry, Spirometry w/bronchodilator, DLCO and Lung Volumes Sebastian Saenz Jr., MD Phone: tel: fax: Referral ID Status Reason Start Date Expiration Date Visits Re quested Visits Authorized [id number] Closed 04/26/2020 05/26/2021 1 1 Encounter Details Date Type Department Care Team (Latest Contact Info) Description 04/25/2021 9:57 AM CDT Hospital Encounter [facility] PFT Lab [address] [facility] [address] [place] [address] Mild intermittent asthma in adult without complication [...] on file Legal Sex Male 3:18 AM CHEF HEAD Gender Identity Not on file Sexual Orientation Not on file documented as of this encounter Functional Status * Audit-C Score Answer Date of Assessment Author 3 [...] 10:47 AM CDT) FVC PRE 4.13 L [facility] FVC %PRE PRED 85 % [facility] FEV1 PRE 3.01 L [facility] FEV1 %PRE PRED 81 % [facility] FEV1/FVC PRE 73.0 % [facility] Anatomical Region Laterality Modality PFT 04/25/2021 10:0 9 AM CDT Narrative 05/01/2021 9:47 AM CDT PFT performed at:->[facility] Adult PFT Lab- [facility] Procedure:->Standard Standard:->Spirometry, Spirometry w/bronchodilator, DLCO and Lung Volumes UPDATED Sebastian Saenz Jr., MD PFT ORDERABLES Final Result documented in this encounter Visit Diagnoses Diagnosis Mild intermittent asthma in adult without complication documented in this encounter Care Teams Event Sales Manager Relationship Specialty Start Date End Date Hemal Huffman MD [address] [place] [address] PCP - General Family Medicine 03/07/19 08/13/22 Reji Taylor MD 12/15/18 Delroy Best MD [address] [place] [address] Supplemental Manager Cardiology 11/20/20 documented as of this encounter
--- OUTSIDE RECORDS SUMMARY | 2024-11-15 12:43 | XMS_ITS | Encounter Summary ---
Author Organization [facility] Address [address] [place] [address] Phone Care Team Providers Care Trouble Tracer Name Role Phone Reji Taylor MD Primary Care Provider [phone] Reji Taylor MD Primary Care Provider [phone] Reji Taylor MD Unavailable [phone] Hemal Huffman MD Primary Care Provider [phone] Delroy Best MD Unavailable [phone] Marta Taylor MD Primary Care Provider Maria Fernanda Oakes MD Unavailable [phone] Nallely Lyons MD PhD Unavailable [phone] Encounter Details Date Type Department Care Team (Latest Contact Info) Description 11/08/2017 Orders Only [facility] CONVERSION Scanning, Provider Social History Tobacco Use Types Packs/Day Years Used Date Smoking Tobacco: Never Sex and Gender Information Value Date Recorded Sex Assigned at Not on file Legal Sex Male 3:18 AM COMMERCIAL SALES DIRECTOR Gender Identity Not on file Sexual Orientation Not on file documented as of this encounter Plan of Treatment Not on file documented as of this encounter Procedures Procedure Name Priority Date/Time Associated Diagnosis Comments PULMONARY FUNCTION TEST (PFT) 11/08/2017 10:45 AM COMMERCIAL SALES DIRECTOR documented in this encounter Results * PULMONARY FUNCTION TEST (PFT) (11/08/2017 10:45 AM COMMERCIAL SALES DIRECTOR) Anatomical Region Laterality Modality PFT us Provider Scanning PFT ORDERABLES Final Result documented in this encounter Visit Diagnoses Not on filedocumented in this encounter Care Teams Trouble Tracer Relationship Specialty Start Date End Date Reji Taylor MD PCP - General 03/23/17 12/14/18 Reji Taylor MD PCP - General Family Medicine 12/15/18 03/06/19 Hemal Huffman MD [address] [place] [address] PCP - General Family Medicine 03/07/19 08/13/22 Marta Taylor MD [address] [address] PCP - General Family Practice 08/14/22 Reji Taylor MD 12/15/18 Delroy Best MD [address] [address] Recordist Chief Cardiology 11/20/20 Maria Fernanda Oakes MD [address] [place] [address] [address] [place] [address] Referring Physician Allergy and Immunology 04/12/24 Nallely Lyons MD PhD [address] [place] [address] Consulting Physician Ophthalmology 04/12/24 documented as of this encounter
--- OUTSIDE RECORDS SUMMARY | 2024-11-15 12:43 | XMS_ITS | Referral Summary ---
Author Organization [facility] Address [address] [place] [address] Care Team Providers Care Cpr Instructor Name Role Phone Reji Taylor MD Unavailable [phone] Delroy Best MD Unavailable [phone] Marta Taylor MD Primary Care Provider Maria Fernanda Oakes MD Unavailable Nallely Lyons MD PhD Unavailable [phone] Encounters Date Type Department Care Team Description 10/12/2024 Telephone [facility] Cardiology [address] [facility] [address] [address] Delroy Best MD from Last 3 Months Allergies No known active allergies Medications ultyevbg-pln-YT- lycopen-lutein 0.4-2-250 mg-mg-mcg tablet Rx: Multi For Him - Tablet Active fluticasone propionate (FLONASE) 50 mcg/actuation nasal spray Administer 1 spray into each nostril daily Active DEXAMETHASONE OPHT Administer 1 drop into both eyes 4 (four) times a day Preservative-free dexamethasone 0.01% (from [facility] in [place], prescibed over the phone on 02/02/22) Active [...] pfat Assessment & Plan (09/24/2022 4:38 PM CHEMIST INSTRUMENTATION): Improvement on exam today, just patchy lissamine [...] acute episode of bilateral scleritis/conjunctivitis (was in [place], +tick bite). Pt was treated with PF [...] remained in sinus rhythm with flecainide. Patient's data processing equipment repairer feels his risk for stroke is relatively low so has allowed him to stop the Eliquis. Given there is lack of evidence suggesting whether aspirin is beneficial at preventing stroke this has been deferred. Patient is afebrile she is able to monitor his heart rhythm and he feels anything he has been sending it to his data processing equipment repairer to review Essential hypertension 03/07/2019 Assessment & [...] in adult 10/05/2017 08/14/20 22 Asthma 04/12/2024 Immunizations Immunization Administration Dates Next Due Influenza, Quadrivalent, Fadumo l Culture-based MDCK, Preservative Free, Antibiotic Free, Intramuscular 07/18/2021 Influenza, Unspecified 04/12/2024(Deferred: Brandee ent Refused) Moderna SARS-CoV-2 Monovalen t Vaccination (12+ YRS) 12/16/2020 Tdap 09/26/2014 ZOSTER Recombinant 11/03/2021,08/01/2021 Social History Tobacco Use Types Packs/Day Years [...] on file Legal Sex Male 3:18 AM CHEMIST INSTRUMENTATION Gender Identity Not on file Sexual Orientation Not on file Last Filed Vital Signs Vital Sign Reading [...] 05/19/2024 8:12 AM CDT Plan of Treatment Not on file Procedures Procedure Name Priority Date/Time Associated Diagnosis Comments PSA SCREEN Routine 05/12/2024 11:00 AM CDT Screening for prostate cancer Routine general medical examination at a [facility] care facility COLONOSCOPY Routine 08/08/2012 3:20 PM CHEMIST INSTRUMENTATION from Last 3 Months or Most Recently [...] 0 AM CDT 05/12/2024 3:43 PM CDT Marta Taylor MD LAB BLOOD ORDERABLES F inal Result [address]IE [address] Department [place] [address] * HM COLONOSCOPY (08/08/2012 3:20 PM CHEMIST INSTRUMENTATION) Historical Provider HEALTH MAINTENANCE Final Result from Last 3 Months or Most Recently Relevant to Health Maintenance Insurance [employer] MEDICARE [facility] MEDICARE Care Teams Cpr Instructor Relationship Specialty Start Date End Date Marta Taylor MD [address] [address] PCP - General Family Practice 08/14/22 Reji Taylor MD 12/15/18 Delroy Best MD [address] [address] Sociology Faculty Member Cardiology 11/20/20 Maria Fernanda Oakes MD [address] [place] [address] Referring Physician Allergy and Immunology 04/12/24 Nallely Lyons MD PhD [address] [place] [address] Consulting Physician Ophthalmology 04/12/24
--- OUTSIDE RECORDS SUMMARY | 2024-11-15 12:43 | XMS_ITS | Encounter Summary ---
Author Organization [facility] Facility Care Team Providers Care Machine Preservative Filler Name Role Phone Reji Taylor MD Primary Care Provider + [phone] Reji Taylor MD Primary Care Provider + [phone] Reji Taylor MD Unavailable [phone] Hemal Huffamn MD Primary Care Provider [phone] Delroy Best MD Unavailable [phone] Marta Taylor MD Primary Care Provider Maria Fernanda Oakes MD Unavailable [phone] Nallely Lyons MD PhD Unavailable [phone] Encounter Details Date Type Department Care Team (Latest Contact Info) Description 11/03/2017 Orders Only [facility]INCON[facility] ProviderDonis MD [address] [place] [address] Social History Tobacco Use Types Packs/Day Years Used Date Smoking Tobacco: Never Assessed Sex and Gender Information Value Date Recorded Sex Assigned at Not on file 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 us Historical Provider Final Res ult documented in this encounter Visit Diagnoses Not on filedocumented in this encounter Care Teams Machine Preservative Filler Relationship Specialty Start Date End Date Reji Taylor MD PCP - General 03/23/17 12/14/18 Reji Taylor MD PCP - General Family Medicine 12/15/18 03/06/19 Hemal Huffman MD [address] [place] [address] PCP - General Family Medicine 03/07/19 08/13/22 Marta Taylor MD [address] [facility] [address] [address] PCP - General Family Practice 08/14/22 Reji Taylor MD 12/15/18 Delroy Best MD [address] [facility] [address] [place] [address] Hand Buffing Wheel Former Cardiology 11/20/20 Maria Fernanda Oakes MD [address] [place] [address] [address] [place] [address] Referring Physician Allergy and Immunology 04/12/24 Nallely Lyons MD PhD [address] [place] [address] Consulting Physician Ophthalmology 04/12/24 documented as of this encounter
--- OUTSIDE RECORDS SUMMARY | 2024-11-15 12:43 | XMS_ITS | Encounter Summary ---
Author Organization [facility] Healthcare Address [address] [place] [address] Care Team Providers Care Liquor Bridge Operator Name Role Phone Reji Taylor MD Primary Care Provider [phone] Reji Taylor MD Unavailable [phone] Hemal Huffman MD Primary Care Provider [phone] Delroy Best MD Unavailable [phone] Marta Taylor MD Primary Care Provider Maria Fernanda Oakes MD Unavailable [phone] Nallely Lyons MD PhD Unavailable Encounter Details Date Type Department Care Team (Late st Contact Info) Description 12/30/2018 Orders Only [facility] IP Provider, MD Donis [address] [place] [address] Social History Tobacco Use Types Packs/Day Years Used Date Smoking Tobacco: Never Sex and Gender Information Value Date Recorded Sex Assigned at Not on file 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 us Historical Provider [facility] FERREIRA Final Result documented in this encounter Visit Diagnoses Not on filedocumented in this encounter Care Teams Liquor Bridge Operator Relationship Specialty Start Date End Date Reji Taylor MD PCP - General Family Medicine 12/15/18 03/06/19 Hemal Huffman MD [address] [place] [address] PCP - General Family Medicine 03/07/19 08/13/22 Marta Taylor MD [address] [facility] [address] [address] PCP - General Family Practice 08/14/22 Reji Taylor MD 12/15/18 Delroy Best MD [address] [facility] [address] [address] Mine Wirer Cardiology 11/20/20 Maria Fernanda Oakes MD [address] [facility] [address] [place] [address] Referring Physician Allergy and Immunology 04/12/24 Nallely Lyons MD PhD [address] [place] [address] Consulting Physician Ophthalmology 04/12/24 documented as of this encounter
--- OUTSIDE RECORDS SUMMARY | 2024-11-15 12:43 | XMS_ITS | Encounter Summary ---
Author Organization [facility] Facility Care Team Providers Care Sales Intern Name Role Phone Reji Taylor MD Primary Care Provider + [phone] Reji Taylor MD Primary Care Provider + [phone] Reji Taylor MD Unavailable [phone] Hemal Huffman MD Primary Care Provider [phone] Delroy Best MD Unavailable [phone] Marta Taylor MD Primary Care Provider Maria Fernanda Oakes MD Unavailable [phone] Nallely Lyons MD PhD Unavailable [phone] Encounter Details Date Type Department Care Team (Latest Contact Info) Description 08/13/2017 Orders Only [facility] CLINCONV ProviderDonis MD [address] [place] [address] Social History Tobacco Use Types Packs/Day Years Used Date Smoking Tobacco: Never Assessed Sex and Gender Information Value Date Recorded Sex Assigned at Not on file Legal Sex Male 3:18 AM ADAPTED PHYSICAL EDUCATION TEACHER Gender Identity Not on file Sexual Orientation Not on file documented as of this encounter Plan of Treatment Not on file documented as of this encounter Procedures Procedure Name Priority Date/Time Associated Diagnosis Comments CARDIOLOGY REPORT 10/05/2017 12: 00 AM ADAPTED PHYSICAL EDUCATION TEACHER documented in this encounter Results * CARDIOLOGY REPORT (10/05/2017 12:00 AM ADAPTED PHYSICAL EDUCATION TEACHER) Anatomical Region Laterality Modality Other Narrative 10/05/2017 12:00 AM ADAPTED PHYSICAL EDUCATION TEACHER Ordered by an unspecified provider. us Historical Provider [facility] DON FERREIRA Final Result documented in this encounter Visit Diagnoses Not on filedocumented in this encounter Care Teams Sales Intern Relationship Specialty Start Date End Date Reji Taylor MD PCP - General 03/23/17 12/14/18 Reji Taylor MD PCP - General Family Medicine 12/15/18 03/06/19 Hemal Hfufman MD [address] [place] [address] PCP - General Family Medicine 03/07/19 08/13/22 Marta Taylor MD [address] [facility] [address] [address] PCP - General Family Practice 08/14/22 Reji Taylor MD 12/15/18 Delroy Best MD [address] [facility] [address] [address] Wirer Passenger Car Cardiology 11/20/20 Maria Fernanda Oakes MD [address] [place] [address] [address] [place] [address] Referring Physician Allergy and Immunology 04/12/24 Nallely Lyons MD PhD [address] [place] [address] Consulting Physician Ophthalmology 04/12/24 documented as of this encounter
== END 2024-11-15 10:57 | disposition home or self-care (01) ==
LOC: ANHLAB 11:05
PROVIDERS: PCP Family Medicine Sports Medicine; Visit Provider Internal Medicine Cardiovascular Disease
DX: I10 Essential (primary) hypertension (principal); I35.1 Nonrheumatic aortic (valve) insufficiency; I48.0 Paroxysmal atrial fibrillation; E78.2 Mixed hyperlipidemia
CPT/HCPCS: 36415; 80061; 80076

== ENCOUNTER 2025-05-17 09:47 | Outpatient (CLI) | payer MEDICARE, SELFPAY ==
--- OUTSIDE RECORDS SUMMARY | 2012-08-29 08:30 | XMS_ITS | Continuity of Care Document ---
Author Organization [facility] Address [address] [place] [address] Phone Care Team Providers Care Golf Club Head Inspector Name Role Phone Ernesto Diamond MD Unavailable Unavailable Medications Medication Instructions Dosage Effective Dates (start - stop) Status Comments fluticasone 50 mcg/actuation Nasal [place], Susp spray 2 spray (100MCG) by intranasal route every day in each nostril 100 MCG - Active Xopenex HFA 45 mcg/actuation Aerosol Inhaler inhale 2 puff (90MCG) by inhalation route every 6 hours as needed 90 MCG - Active Advance Directives Directive Yes / No Effective Date File Name No Information Encounters Encounter Description Practice Location Reason(s) For Visit Diagnoses Date Provider Providers Copied on Encounter [facility], [address], [place], [place], [id number] , [place] tel: [phone] Tucker Allergy Allergic rhinitis due to other allergenINTRINSIC ASTHMA, UNSPECIFIED [address] [address], [place], [place], [id number] , [place]. tel: [phone] Referring Provider: Kiersten Benedict [facility] [address], [place], [address]. tel:[phone] Family History Family Member Type Diagnosis Age At Onset Father Problem (finding) Allergies Mother Problem (finding) Allergies Problem (finding) No family history of As thia Payers Payer name Insurance type Covered constitution party ID Authoriza tieliza(s) No Information Social History Type Description Quantity Date Captured Comments Alcohol Use Details Unknown Caffeine Use Details Unknown Tobacco Use Status No Information Smoking Status Never smoker Sex Male Chief Complaint And Reason For Visit No Information Reason For Referral Reason For Referral No Information History Of Present Illness Encounter Date Complaint History Of Prese nt Illness No Information Functional Status Date Functional Assessmen t No Information Instructions Date Instruction Additional Infor mation No Information Assessments Type Assessment Date No Information Patient Care Teams Name Effective Dates (start - stop) Status Members No Information
--- OUTSIDE RECORDS SUMMARY | 2021-04-25 09:57 | XMS_ITS | Encounter Summary ---
Author Organization [facility] Address [address] [place] [address] Phone Care Team Providers Care Teletype Or Varitype Keyboard Operator Name Role Phone Reji Taylor MD Unavailable [phone] Hemal Huffman MD Primary Care Provider [phone] Delroy Best MD Unavailable [phone] Reason for Referral * (Routine) - Closed Specialty Diagnoses / Procedures Referred By Juan C echavarria Referred To Contact Diagnoses Mild intermittent asthma in adult without complication Procedures Pulmonary Function Test -[facility] Adult [facility]FT [facility]- [facility]; Standard; Spirometry, Spirometry w/bronchodilator, DLCO and Lung Volumes Sebastian Saenz Jr., MD Phone: tel: fax: Referral ID Status Reason Start Date Expiration Date Visits Re quested Visits Authorized [id number] Closed 04/26/2020 05/26/2021 1 1 Reason for Visit * (Routine) - Closed Specialty Diagnoses / Procedures Referred By Juan C echavarria Referred To Contact Diagnoses Mild intermittent asthma in adult without complication Procedures Pulmonary Function Test -[facility] Adult [facility]FT [facility]- [facility]; Standard; Spirometry, Spirometry w/bronchodilator, DLCO and Lung Volumes Sebastian Saenz Jr., MD Phone: tel: fax: Referral ID Status Reason Start Date Expiration Date Visits Re quested Visits Authorized [id number] Closed 04/26/2020 05/26/2021 1 1 Encounter Details Date Type Department Care Team (Latest Contact Info) Description 04/25/2021 9:57 AM CDT Hospital Encounter [facility] Medicine PFT Lab [address] [facility] [address] [place] [id number] Mild intermittent asthma in adult without complication Social History Tobacco Use Types Packs/Day Years Used Date Smoking Tobacco: Never Passive Smoke Exposure: Never Smokeless Tobacco: Never Alcohol Use Standard Drinks/Week Comments Yes 0 (1 standard drink = 0.6 oz pur e alcohol) once a week AUDIT-C Answer Date Recorded Q1: How often do you have a drink containing alc ohol? 2-4 times a month 04/12/2024 Q2: How many drinks containi ng alcohol do you have on a typical day when you are drinking? 1 or 2 04/12/2024 Q3: How often do you have si x or more drinks on one occasion? 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 2-4 times a month 04/12/2024 1:43 PM Natalia Fajardo MA Q2: How many drinks containing alcohol do you have on a typical day when you are drinking? 1 or 2 04/12/2024 1:43 PM Natalia Fajardo MA Q3: How often do you have six or more drinks on one occasion? Less than monthly 04/12/2024 1:43 PM Natalia Fajardo MA documented as of this encounter Plan of Treatment Not on file documented as of this encounter Procedures Procedure Name Priority Date/Time Associated Diagnosis Comments PULMONARY FUNCTION TEST (PFT) Routine 04/25/2021 10:47 AM CDT Mild intermittent asthma in adult without complication documented in this encounter Results * Pulmonary Function Test - (04/25/2021 10:47 AM CDT) FVC PRE 4.13 L [facility] FVC %PRE PRED 85 % [facility] FEV1 PRE 3.01 L [facility] FEV1 %PRE PRED 81 % [facility] FEV1/FVC PRE 73.0 % [facility] Anatomical Region Laterality Modality PFT 04/25/2021 10:0 9 AM CDT Narrative 05/01/2021 9:47 AM CDT PFT performed at:->[facility] Adult PFT Lab- [facility] Procedure:->Standard Standard:->Spirometry, Spirometry w/bronchodilator, DLCO and Lung Volumes UPDATED Sebastian Saenz Jr., MD PFT ORDERABLES Final Result documented in this encounter Visit Diagnoses Diagnosis Mild intermittent asthma in adult without complication documented in this encounter Care Teams Teletype Or Varitype Keyboard Operator Relationship Specialty Start Date End Date Hemal Huffman MD [address] [place] [address] PCP - General Family Medicine 03/07/19 08/13/22 Reji Taylor MD 12/15/18 Delroy Best MD [address] [place] [address] [address] Trigonometry Tutor Cardiology 11/20/20 documented as of this encounter
--- OUTSIDE RECORDS SUMMARY | 2025-05-17 10:15 | XMS_ITS | Clinical Summary ---
Author Organization [facility] Address [address] [place] [address] Care Team Providers Care Egg Producer Name Role Phone Reji Taylor MD Unavailable [phone] Delroy Best MD Unavailable [phone] Maria Fernanda Oakes MD Unavailable [phone] Nallely Lyons MD PhD Unavailable Keanu Holland MD Primary Care Provider Allergies No known active allergies Medications aqrfilmr-snw-LU-ly copen-lutein 0.4-2-250 mg-mg-mcg tablet Rx: Multi For Him - Tablet Active fluticasone propionate (FLONASE) 50 mcg/actuation nasal spray Administer 1 spray into each nostril daily Active sodium chloride (John 128) 5 % ophthalmic solutionIndication s:Corneal Edema Administer 1 drop into both eyes 2 (two) times a day as needed (irritation) 15 mL 3 03/10/20 24 Active atorvastatin (LIPITOR) 10 mg tablet Take 1 tablet (10 mg total) by mouth nightly 90 tablet 3 10/12/19 25 Active ketotifen fumarate (ZADITOR) 0.035 % (0.025% of ketotifen) ophthalmic solutionIndication s:Allergic Conjunctivitis Administer 1 drop into both eyes 2 (two) times a day 5 mL 3 11/25/19 25 Active budesonide-formote roL (Symbicort) 160-4.5 mcg/actuation inhaler Inhale 2 puffs 2 (two) times a day Rinse mouth with water after use. Do not swallow. 1 each 11 12/19/19 25 Active flecainide (TAMBOCOR) 150 mg tabletIndications: Paroxysmal atrial fibrillation (HCC) TAKE 1 TABLET(150 MG) BY MOUTH TWICE DAILY 60 tablet 3 01/23/20 25 Active amLODIPine (NORVASC) 5 mg tablet TAKE 1 TABLET(5 MG) BY MOUTH DAILY 90 tablet 1 03/13/20 25 Active levalbuterol (XOPENEX HFA) 45 mcg/actuation inhalerIndications :Mild persistent asthma without complication,Moder ate persistent asthma without complication,Mild intermittent asthma in adult without complication Inhale 2 puffs every 6 (six) hours as needed for wheezing 1 each 3 04/27/20 25 025 Active levalbuterol (XOPENEX HFA) 45 mcg/actuation inhalerIndications :Mild persistent asthma without complication,Moder ate persistent asthma without complication,Mild intermittent asthma in adult without complication Inhale 2 puffs every 6 (six) hours as needed for wheezing 1 each 3 12/21/19 24 025 Discontin ued(Reord er) Active Problems Problem Noted Date Diagnosed Date High risk medication use 03/15/2025 Preventative health care 03/15/2025 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 Pt was treated with PF [...] town. Mixed hyperlipidemia 08/06/2021 Assessment & Plan (03/15/2025 12:50 PM CDT): Hyperlipidemia is managed with atorvastatin. Recent LDL was 83 mg/dL, indicating good control. Regular hepatic function tests are performed due to statin use. - Continue atorvastatin for cholesterol management. - Order lipid panel for re-evaluation. - Monitor hepatic function regularly. Lab Results Component Value Date CHOL 140 05/12/2024 CHOL 195 09/25/2020 CHOL 183 10/05/2017 Lab Results Component Value Date HDL 40 05/12/2024 HDL 35 09/25/2020 HDL 38 10/05/2017 Lab Results Component Value Date LDLCALC 89 05/12/2024 LDLCALC 140 (H) 09/25/2020 LDLCALC 124 10/05/2017 SCRLDL 83 11/15/2024 SCRLDL 82 04/08/2023 SCRLDL 75 08/07/2022 Lab Results Component Value Date TRIG 51 05/12/2024 TRIG 102 09/25/2020 TRIG 103 10/05/2017 Assessment & Plan (04/12/2024 6:01 PM CDT): Chronic. Tolerates cholesterol medication. Check cholesterol level and just as needed. Target minimum an LDL goal less than 100 with optimal less than 70 Paroxysmal atrial fibrillation 07/10/2020 Overview (03/15/2025): Follows with cardiology Assessment & Plan (03/15/2025 12:51 PM CDT): AFib has been well-controlled for almost two years with flecainide. Previously on Eliquis but has been taken off anticoagulation. No recent episodes reported. Regular EKGs are performed twice a year to monitor cardiac status. - Continue flecainide for AFib management. - He is no longer on anticoagulation, used to be on Eliquis which was discontinued due to Deloris risk of stroke per patient then discussing it with his folded towel machine operator - Coordinate blood work and EKG with folded towel machine operator in early May. Assessment & Plan (04/12/2024 6:01 PM CDT): Chronic. He has remained in sinus rhythm with flecainide. Patient's folded towel machine operator feels his risk for stroke is relatively low so has allowed him to stop the Eliquis. Given there is lack of evidence suggesting whether aspirin is beneficial at preventing stroke this has been deferred. Patient is afebrile she is able to monitor his heart rhythm and he feels anything he has been sending it to his folded towel machine operator to review Essential hypertension 03/07/2019 Assessment & Plan (03/15/2025 12:50 PM CDT): BP Readings from Last 3 Encounters: 03/15/25 120/84 12/22/24 138/83 11/23/24 104/70 Hypertension is well-controlled with amlodipine 5 mg daily. Recent blood pressure reading was 120/84 mmHg. - Continue amlodipine for blood pressure management. Assessment & Plan (04/12/2024 6:00 PM CDT): Chronic. HTN controlled. Cont prescription Rx as indicated in HPI under HTN diagnosis. Low sodium diet (DASH or Mediterranean), exercise, wt loss (if over weight) discussed Nonrheumatic aortic (valve) insufficiency 2017 Overview (03/06/2019): Trace by echo done in September 2017 Assessment & Plan (04/12/2024 6:00 PM CDT): Mild. Asymptomatic. Monitor for symptoms PVCs (premature ventricular contractions) 2017 Overview (03/06/2019): Holter monitor done on 08/16/2017 showed rare APCs with a 6 beat run of PSVT at a heart rate of 185 bpm. There are 4349 PVCs without any ventricular tachycardia. Ventricular bigeminy and trigeminy noted. Patient did not report any symptoms at the time.. Allergic rhinitis due to pollen 12/16/2016 Allergic rhinitis due to mold 12/16/2016 Assessment & Plan (03/15/2025 12:53 PM CDT): - Chronic condition, follows with tractor trailer mechanic and Ophthalmology as well due to history of superior limbic keratoconjunctivitis - Uses Flonase nasal spray, and also has sodium chloride ophthalmic solution and ketotifen fumarate ophthalmic solution for use - Continue current management Mild persistent asthma 12/16/2016 Assessment & Plan (03/15/2025 12:51 PM CDT): Asthma is well-controlled with Symbicort. Rarely needs a rescue inhaler and reports good symptom control. Regular use of maintenance inhaler is emphasized. - Continue Symbicort for asthma maintenance. - Use albuterol as needed for acute symptoms. - Follows in his managed by tractor trailer mechanic Assessment & Plan (04/12/2024 6:01 PM CDT): [...] Chest pain in adult 10/05/2017 08/14/20 22 PAC (premature atrial contraction) 10/05/2017 03/15/2025 Palpitations 10/05/2017 03/15/2025 Overview (03/06/2019): Left ventricle systolic function is normal by echo done in September 2019 his chest test is negative for ischemia in September 2027. Asthma 04/12/2024 Encounters Date Type Department Care Team Description 04/27/2025 10:30 AM CDT Office Visit [facility] Medicine Allergy and Immunology [address] [facility] [address] [place] [address] Maria Fernanda Oakes MD Mild persistent asthma without complication (Primary Dx); Allergic rhinitis due to mold; Allergic rhinitis due to dust mite; Seasonal allergic rhinitis due to pollen; Moderate persistent asthma without complication; Mild intermittent asthma in adult without complication 04/19/2025 Telephone [facility] Medical [facility] Primary Care at [address] [address] Keanu Holland MD 03/21/2025 10:30 AM CDT Office Visit [facility] Medicine Ophthalmology [address] [place] [address] [address] [place] [address] Nallely Lyons MD PhD Ocular rosacea (Primary Dx) 03/15/2025 10:30 AM CDT Office Visit [facility] Primary Care at [address] [address] Keanu Holland MD Paroxysmal atrial fibrillation (HCC) (Primary Dx); Essential hypertension; Mixed hyperlipidemia; Mild persistent asthma without complication; Allergic rhinitis due to mold; Need for hepatitis B screening test; Prostate cancer screening; Screen for colon cancer from Last 3 Months Immunizations Immunization Administration Dates Next Due Influenza, Quadrivalent, Fadumo l Culture-based MDCK, Preservative Free, Antibiotic Free, Intramuscular 07/18/2021 Influenza, Unspecified 04/12/2024(Deferred: Brandee ent Refused) Moderna SARS-CoV-2 Monovalen t Vaccination (12+ YRS) 12/16/2020 Pneumococcal Conjugate Pcv20 03/15/2025 Tdap 09/26/2014 ZOSTER Recombinant 11/03/2021,08/01/2021 Medical History [...] on file Legal Sex Male 3:18 AM SALES ORDER CLERK Gender Identity Not on file Sexual Orientation Not on file Obstetrics History Last Filed Vital Signs Vital Sign Reading Time Taken Comments Blood Pressure 135/77 04/27/2025 10:39 AM CDT Pulse 64 04/27/2025 10:39 AM CDT Temperature 37 C (98.6 F) 04/27/2025 10:39 AM CDT Respiratory Rate 18 05/19/2024 8:12 AM CDT Oxygen Saturation 97% 04/27/2025 10:39 AM CDT Inhaled Oxygen Concentration - - Weight 87.5 kg (193 lb) 04/27/2025 10:39 AM CDT Height 185.4 cm (6' 1) 04/27/2025 10:39 AM CDT Body Mass Index 25.46 04/27/2025 10:39 AM CDT Plan of Treatment Health Maintenance Due Date Last Done Comments Hepatitis B Screening 1978 Colon Cancer Screening-Colonoscopy 08/08/2022 08/08/2012 DTaP/Tdap/Td Vaccine (2 - Td or Tdap) 09/26/2024 09/26/2014 Well Visit 65+ 04/12/2025 04/12/2024 Covid-19 Vaccine (2024-2 6 season) 2025 06/10/2022, 02/02/2022, 07/18/2021, Additional history exists Influenza Vaccine (#1) 2025 07/18/2021 Depression Screening 03/15/2026 03/15/2025, 04/12/2024, 01/03/2024, Additional history exists Fall Risk Assessment 03/15/2026 03/15/2025, 04/12/20 24 Prostate Cancer Screening-PSA 05/12/2026 05/12/2024 Colon Cancer Screening-CT Colonography Discontinued 08/08/2012 Colon Cancer Screening-DNA Stool Discontinued 08/08/20 12 Colon Cancer Screening-FIT Discontinued 08/08/2012 Colon Cancer Screening-Sigmoidoscopy Discontinued 08/08/2012 Zoster Vaccine Completed 11/03/2021, 08/01/2021 Hepatitis C Screening Completed 12/17/2021 Pneumococcal vaccine 65+ Completed 03/15/2025 Procedures Procedure Name Priority Date/Time Associated Diagnosis Comments PSA SCREEN Routine 05/12/2024 11:00 AM CDT Screening for prostate cancer Routine general medical examination at a health care facility COLONOSCOPY Routine 08/08/2012 3:20 PM SALES ORDER CLERK from Last 3 Months or Most Recently [...] MD LAB BLOOD ORDERABLES F inal Result [facility] [address] [address] [employer] [place] [address] * COLONOSCOPY (08/08/2012 3:20 PM SALES ORDER CLERK) Donis Provider HEALTH MAINTENANCE Final Result from Last 3 Months or Most Recently Relevant to Health Maintenance Insurance [facility] MEDICARE [facility] MEDICARE Care Teams Egg Producer Relationship Specialty Start Date End Date Keanu Holland MD [address] [address] PCP - General Family Medicine 03/15/25 Reji Taylor MD 12/15/18 Delroy Best MD [address] [facility] [address] [address] Pattern Marking Supervisor Cardiology 11/20/20 Maria Fernanda Oakes MD [address] [place] [address] [address] [place] [address] Referring Physician Allergy and Immunology 04/12/24 Nallely Lyons MD PhD [address] [place] [address] Consulting Physician Ophthalmology 04/12/24
--- OUTSIDE RECORDS SUMMARY | 2025-05-17 10:15 | XMS_ITS | Encounter Summary ---
Author Organization [facility] Facility Care Team Providers Care Director Of Health Care Marketing Name Role Phone Reji Taylor MD Primary Care Provider + [phone] Reji Taylor MD Primary Care Provider + [phone] Reji Taylor MD Unavailable [phone] Hemal Huffman MD Primary Care Provider [phone] Delroy Best MD Unavailable [phone] Marta Taylor MD Primary Care Provider Maria Fernanda Oakes MD Unavailable [phone] Nallely Lyons MD PhD Unavailable [phone] No, Physician Primary Care Provider Keanu Holland MD Primary Care Provider Encounter Details Date Type Department Care Team (Latest Contact Info) Description 08/13/2017 Orders Only [facility] CLINCONV ProviderDonis MD [address] [place] [address] Social History Tobacco Use Types Packs/Day Years Used Date Smoking Tobacco: Never Assessed Sex and Gender Information Value Date Recorded Sex Assigned at Not on file Legal Sex Male 3:18 AM FORMULATION SCIENTIST Gender Identity Not on file Sexual Orientation Not on file documented as of this encounter Plan of Treatment Not on file documented as of this encounter Procedures Procedure Name Priority Date/Time Associated Diagnosis Comments CARDIOLOGY REPORT 10/05/2017 12: 00 AM FORMULATION SCIENTIST documented in this encounter Results * CARDIOLOGY REPORT (10/05/2017 12:00 AM FORMULATION SCIENTIST) Anatomical Region Laterality Modality Other Narrative 10/05/2017 12:00 AM FORMULATION SCIENTIST Ordered by an unspecified provider. us Historical Provider [facility] DON FERREIRA Final Result documented in this encounter Visit Diagnoses Not on filedocumented in this encounter Care Teams Director Of Health Care Marketing Relationship Specialty Start Date End Date Reji Taylor MD PCP - General 03/23/17 12/14/18 Reji Taylor MD PCP - General Family Medicine 12/15/18 03/06/19 Hemal Huffman MD [address] [place] [address] PCP - General Family Medicine 03/07/19 08/13/22 Marta Taylor MD [address] [facility] [address] [address] PCP - General Family Practice 08/14/22 11/23/24 No, Physician PCP - General 11/24/24 03/14/25 Keanu Holland MD [address] [address] PCP - General Family Medicine 03/15/25 Reji Taylor MD 12/15/18 Delroy Best MD [address] [facility] [address] [place] [address] Passport Application Examiner Cardiology 11/20/20 Maria Fernanda Oakes MD [address] [place] [address] [address] [place] [address] Referring Physician Allergy and Immunology 04/12/24 Nallely Lyons MD PhD [address] [place] [address] Consulting Physician Ophthalmology 04/12/24 documented as of this encounter
--- OUTSIDE RECORDS SUMMARY | 2025-05-17 10:15 | XMS_ITS | Encounter Summary ---
Author Organization [facility] Address [address] [facility] [address] [place] [address] Phone Care Team Providers Care Flue Lining Dipper Name Role Phone Reji Taylor MD Primary Care Provider + [phone] Reji Taylor MD Primary Care Provider + [phone] Reji Taylor MD Unavailable [phone] Hemal Huffman MD Primary Care Provider [phone] Delroy Best MD Unavailable [phone] Marta Taylor MD Primary Care Provider Maria Fernanda Oakes MD Unavailable [phone] Nallely Lyons MD PhD Unavailable No, Physician Primary Care Provider [phone] Keanu Holland MD Primary Care Provider Encounter Details Date Type Department Care Team (Latest Contact Info) Description 11/08/2017 Orders Only [facility] CONVERSION Scanning, Provider Social History Tobacco Use Types Packs/Day Years Used Date Smoking Tobacco: Never Sex and Gender Information Value Date Recorded Sex Assigned at Not on file Legal Sex Male 3:18 AM SOA INTEGRATION ARCHITECT Gender Identity Not on file Sexual Orientation Not on file documented as of this encounter Plan of Treatment Not on file documented as of this encounter Procedures Procedure Name Priority Date/Time Associated Diagnosis Comments PULMONARY FUNCTION TEST (PFT) 11/08/2017 10:45 AM SOA INTEGRATION ARCHITECT documented in this encounter Results * PULMONARY FUNCTION TEST (PFT) (11/08/2017 10:45 AM SOA INTEGRATION ARCHITECT) Anatomical Region Laterality Modality PFT us Provider Scanning PFT ORDERABLES Final Result documented in this encounter Visit Diagnoses Not on filedocumented in this encounter Care Teams Flue Lining Dipper Relationship Specialty Start Date End Date Reji Taylor MD PCP - General 03/23/17 12/14/18 Reji Taylor MD PCP - General Family Medicine 12/15/18 03/06/19 Hemal Huffman MD [address] [place] [address] PCP - General Family Medicine 03/07/19 08/13/22 Marta Taylor MD [address] [address] PCP - General Family Practice 08/14/22 11/23/24 No, Physician PCP - General 11/24/24 03/14/25 Keanu Holland MD [address] [address] PCP - General Family Medicine 03/15/25 Reji Taylor MD 12/15/18 Delroy Best MD [address] [facility] [address] [address] Rubber Goods Finisher Cardiology 11/20/20 Maria Fernanda Oakes MD [address] [place] [address] [address] [place] [address] Referring Physician Allergy and Immunology 04/12/24 Nallely Lyons MD PhD [address] [place] [address] Consulting Physician Ophthalmology 04/12/24 documented as of this encounter
--- OUTSIDE RECORDS SUMMARY | 2025-05-17 10:15 | XMS_ITS | Encounter Summary ---
Author Organization [facility] Address [address] [place] [address] Care Team Providers Care Window And Siding Craftsman Name Role Phone Reji Taylor MD Primary Care Provider [phone] Reji Taylor MD Unavailable [phone] Hemal Huffman MD Primary Care Provider [phone] Delroy Best MD Unavailable [phone] Marta Taylor MD Primary Care Provider Maria Fernanda Oakes MD Unavailable Nallely Lyons MD PhD Unavailable No, Physician Primary Care Provider Keanu Holland MD Primary Care Provider Encounter Details Date Type Department Care Team (Late st Contact Info) Description 12/30/2018 Orders Only [facility] IP Provider, MD Donis [address] [place] [address] Social History Tobacco Use Types Packs/Day Years Used Date Smoking Tobacco: Never Sex and Gender Information Value Date Recorded Sex Assigned at Not on file 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 Gender Identity Not on file Sexual Orientation [...] on filedocumented in this encounter Care Teams Window And Siding Craftsman Relationship Specialty Start Date End Date Reji Taylor MD PCP - General Family Medicine 12/15/18 03/06/19 Hemal Huffman MD [address] [place] [address] PCP - General Family Medicine 03/07/19 08/13/22 Marta Taylor MD [address] [facility] [address] [address] PCP - General Family Practice 08/14/22 11/23/24 No, Physician PCP - General 11/24/24 03/14/25 Keanu Holland MD [address] [address] PCP - General Family Medicine 03/15/25 Reji Taylor MD 12/15/18 Delroy Best MD [address] [facility] [address] [address] Junior Account Executive Cardiology 11/20/20 Maria Fernanda Oakes MD [address] [facility] [address] [place] [address] Referring Physician Allergy and Immunology 04/12/24 Nallely Lyons MD PhD [address] [place] [address] Consulting Physician Ophthalmology 04/12/24 documented as of this encounter
--- OUTSIDE RECORDS SUMMARY | 2025-05-17 10:16 | XMS_ITS | Encounter Summary ---
Author Organization [facility] Facility Care Team Providers Care Crm Campaign Manager Name Role Phone Reji Taylor MD Primary Care Provider + [phone] Reji Taylor MD Primary Care Provider + [phone] Reji Taylor MD Unavailable [phone] Hemal Huffman MD Primary Care Provider [phone] Delroy Best MD Unavailable [phone] Marta Taylor MD Primary Care Provider Maria Fernanda Oakes MD Unavailable [phone] Nallely Lyons MD PhD Unavailable No, Physician Primary Care Provider [phone] Keanu Holland MD Primary Care Provider Encounter Details Date Type Department Care Team (Latest Contact Info) Description 11/03/2017 Orders Only [facility] ProviderDonis MD [address] [place] [address] Social History Tobacco Use Types Packs/Day Years Used Date Smoking Tobacco: Never Assessed Sex and Gender Information Value Date Recorded Sex Assigned at Not on file 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 Gender Identity Not on file Sexual Orientation [...] on filedocumented in this encounter Care Teams Crm Campaign Manager Relationship Specialty Start Date End Date Reji Taylor MD PCP - General 03/23/17 12/14/18 Reji Taylor MD PCP - General Family Medicine 12/15/18 03/06/19 Hemal Huffman MD [address] [place] [address] PCP - General Family Medicine 03/07/19 08/13/22 Marta Taylor MD [facility] [address] [address] PCP - General Family Practice 08/14/22 11/23/24 No, Physician PCP - General 11/24/24 03/14/25 Keanu Holland MD [address] [address] PCP - General Family Medicine 03/15/25 Reji Taylor MD 12/15/18 [place] [address] [place] [address] [address] [place] [address] Clinical Nursing Instructor Cardiology 11/20/20 Maria Fernanda Oakes MD [address] [place] [address] [address] [place] [address] Referring Physician Allergy and Immunology 04/12/24 Nallely Lyons MD PhD [address] [place] [address] Consulting Physician Ophthalmology 04/12/24 documented as of this encounter
[2025-05-17 10:43] LABS: Alanine Aminotransferase 38 U/L (6-50); Albumin Level 4.1 g/dL (3.5-5.1); Alkaline Phosphatase 93 U/L (38-126); Aspartate Amino Transferase 35 U/L (17-59); Bilirubin,Total 0.7 mg/dL (0.2-1.3); Cholesterol 166 mg/dL (0-200); HDL Direct 43 mg/dL; Total Protein 6.8 g/dL (6.3-8.2); Triglycerides 91 mg/dL (<150)
== END 2025-05-17 09:48 | disposition home or self-care (01) ==
LOC: ANHLAB 09:50
PROVIDERS: PCP Family Medicine Sports Medicine; Visit Provider Internal Medicine Cardiovascular Disease
DX: E78.2 Mixed hyperlipidemia (principal)
CPT/HCPCS: 36415; 80061; 80076